=== PATIENT | male | born 1980 | race African-American/Black ===

== ENCOUNTER 2019-12-10 21:37 | Inpatient (IN) ==
[2019-12-11] MEDS ORDERED: PANTOPRAZOLE 40 MG VIAL IV STA (01:03)
[2019-12-11 01:13] LABS: Basophils % 0.2 % (0.0-0.8); Hematocrit 46.7 VOL% (42.0-52.0); Hemoglobin 15.2 GM/DL (14.0-18.0); Immature Granulocytes % 0.3 %; Immature Granulocytes Absolute 0.04 #; Lymphocytes # 4.7 10*3/uL (1.4-4.0); Lymphocytes % 39.9 % (21.2-54.2); Mean Corpuscular HGB Conc 32.5 GM/DL (32-36); Mean Corpuscular Volume 90.3 FL (87-102); Mean Platelet Volume 9.8 FL (9.6-12.0); Monocytes % 7.3 % (1.7-12.7); Neutrophils % 52.3 % (38.7-73.9); Platelet Count 158 T/CUMM (130-400); Red Blood Count 5.17 MC/CUMM (3.8-5.5); Red Cell Distribution Width 15.4 % (9.3-17.3); White Blood Count 11.7 T/CUMM (4-12)
[2019-12-11 01:33] LABS: Alanine Aminotransferase 32 U/L (16-61); Albumin 3.8 G/DL (3.4-5.0); Alkaline Phosphatase 55 U/L (45-117); Aspartate Amino Transferase 24 U/L (0-37); Bilirubin,Total < 0.39 MG/DL (0.2-1.0); Blood Urea Nitrogen 11 MG/DL (7-18); Calcium 9.5 MG/DL (8.5-10.1); Estimated Glom Filtration Rate 100 ML/MIN; Glucose 72 MG/DL (74-106); Total Protein 8.8 G/DL (6.4-8.3)
[2019-12-11] MEDS ORDERED: HYDROmorphone 2 MG/1 ML VIAL IV STA (01:57)
[2019-12-11] MEDS ORDERED: ONDANSETRON 4 MG/2 ML VIAL IV PRN (03:18)
[2019-12-11] MEDS ORDERED: INFLUENZA VIRUS VACCINE 0.5 ML SYRINGE IM ONE (07:26)
[2019-12-11 12:18] VITALS: BP 121/72
== END 2019-12-11 15:52 | DRG 914 ==
LOC: EDBD → EDUNIT# → N.ED 21:37 → N.EDINP 12-11 00:53 → N.3W 12-11 02:59
PROVIDERS: ADMIT Surgery; ATTEND Surgery

== ENCOUNTER 2020-02-05 06:01 | Observation (INO) ==
[2020-02-05 06:57] LABS: Basophils % 0.3 % (0.0-0.8); Hematocrit 42.3 VOL% (42.0-52.0); Hemoglobin 13.6 GM/DL (14.0-18.0); Immature Granulocytes % 0.3 %; Immature Granulocytes Absolute 0.02 #; Mean Corpuscular HGB Conc 32.2 GM/DL (32-36); Mean Corpuscular Volume 91.2 FL (87-102); Mean Platelet Volume 10.4 FL (9.6-12.0); Monocytes % 16.6 % (1.7-12.7); Neutrophils % 53.8 % (38.7-73.9); Platelet Count 129 T/CUMM (130-400); Red Blood Count 4.64 MC/CUMM (3.8-5.5); Red Cell Distribution Width 15.1 % (9.3-17.3)
[2020-02-05 07:06] LABS: Partial Thromboplastin Time 24.4 SECS (23.9-33.8)
[2020-02-05 07:18] LABS: Lymphocytes 35 % (20-55); Segmented Neutrophils 48 % (50-85); Total Cells Counted 100
[2020-02-05 07:19] LABS: Hypochromasia 1+; Ovalocytes Slight
[2020-02-05 07:20] LABS: Albumin 3.2 G/DL (3.4-5.0); Bilirubin,Total 0.6 MG/DL (0.2-1.0)
[2020-02-05] MEDS ORDERED: DIPH/TET/ACEL PERT BOOSTER VACCINE 0.5 ML VIAL IM ONE (07:50)
[2020-02-05] MEDS ORDERED: SODIUM CHLORIDE 0.9% 100 ML IV ONE (08:01)
[2020-02-05] MEDS ORDERED: fentaNYL 100 MCG/2 ML VIAL ONE (08:01)
[2020-02-05] MEDS ORDERED: propofoL 200 MG/20 ML VIAL IV ONE (08:01)
[2020-02-05] MEDS ORDERED: MIDAZOLAM 2 MG/2 ML VIAL ONE (08:01)
[2020-02-05] MEDS ORDERED: ETOMIDATE 40 MG/20 ML VIAL IV ONE (08:01)
[2020-02-05] MEDS ORDERED: BISACODYL 5 MG TABLET PO PRN (09:05)
[2020-02-05] MEDS ORDERED: ALBUTEROL/IPRATROPIUM 3 ML NEB RESP TX PRN (09:05)
[2020-02-05] MEDS ORDERED: ACETAMINOPHEN 325 MG TABLET PO PRN (09:05)
[2020-02-05] MEDS ORDERED: ONDANSETRON 4 MG/2 ML VIAL IV PRN ×2 (09:05→11:15)
[2020-02-05] MEDS ORDERED: FAMOTIDINE 20 MG/2 ML VIAL IV STA (09:15)
[2020-02-05] MEDS: LACTATED RINGERS 1,000 ML IV SCH ×2 (09:33→18:20)
[2020-02-05] MEDS: cefOXitin 1,000 MG in SYRINGE 1 EACH IV SCH ×3 (09:33→22:54)
[2020-02-05] MEDS ORDERED: ONDANSETRON 4 MG/2 ML VIAL ONE (10:04)
[2020-02-05] MEDS ORDERED: SEVOFLURANE 1 UNIT/15 MINUTE INH ONE (11:04)
[2020-02-05] MEDS: HYDROmorphone 2 MG/1 ML VIAL IV PRN ×2 (11:24→11:32)
[2020-02-05] MEDS ORDERED: IBUPROFEN 600 MG TABLET PO PRN (12:54)
[2020-02-05] MEDS ORDERED: NITROGLYCERIN SL 0.4 MG TABLET SL PRN (12:54)
[2020-02-05] MEDS: KETOROLAC 30 MG/1 ML VIAL IV PRN ×2 (13:48→22:59)
[2020-02-05] MEDS: CALCIUM CARBONATE CHEW 500 MG TABLET PO SCH ×2 (15:44→21:24)
[2020-02-05] MEDS: POLYCARBOPHIL 625 MG TABLET PO SCH ×2 (21:24)
[2020-02-05] MEDS: BACLOFEN 10 MG TABLET PO SCH (21:24)
[2020-02-05] MEDS: DIVALPROEX 500 MG TABLET PO SCH (21:24)
[2020-02-06] MEDS: LACTATED RINGERS 1,000 ML IV SCH (01:47)
[2020-02-06] MEDS: cefOXitin 1,000 MG in SYRINGE 1 EACH IV SCH ×2 (05:19→20:00)
[2020-02-06] MEDS: KETOROLAC 30 MG/1 ML VIAL IV PRN (05:19)
[2020-02-06] MEDS ORDERED: FERROUS SULFATE 325 MG TABLET PO SCH (08:00)
[2020-02-06] MEDS: DIVALPROEX 500 MG TABLET PO SCH (08:57)
[2020-02-06] MEDS: POLYCARBOPHIL 625 MG TABLET PO SCH (08:58)
[2020-02-06] MEDS: BACLOFEN 10 MG TABLET PO SCH (08:58)
[2020-02-06] MEDS: CALCIUM CARBONATE CHEW 500 MG TABLET PO SCH ×2 (08:58→15:15)
[2020-02-06] MEDS ORDERED: FOLIC ACID 1 MG TABLET PO SCH (09:00)
[2020-02-06] MEDS ORDERED: PANTOPRAZOLE 40 MG TABLET PO SCH (09:00)
[2020-02-06] MEDS ORDERED: hydroCHLOROthiazide 25 MG TABLET PO SCH (09:00)
[2020-02-06 13:27] VITALS: BP 135/116
== END 2020-02-06 15:15 | disposition home or self-care (01) ==
LOC: EDUNIT# → N.EDINP 06:01 → N.ED 06:01 → N.EDINP 10:10 → N.3W 11:55
PROVIDERS: ADMIT Surgery; ATTEND Surgery

== ENCOUNTER 2020-02-08 02:00 | Inpatient (IN) ==
[2020-02-08] MEDS ORDERED: ONDANSETRON 4 MG/2 ML VIAL IV ONE (03:35)
[2020-02-08] MEDS ORDERED: MORPHINE 4 MG/1 ML VIAL IV STA (03:35)
[2020-02-08 03:51] LABS: Basophils % 0.2 % (0.0-0.8); Hematocrit 42.8 VOL% (42.0-52.0); Immature Granulocytes % 0.4 %; Immature Granulocytes Absolute 0.04 #; Lymphocytes # 3.2 10*3/uL (1.4-4.0); Lymphocytes % 30.6 % (21.2-54.2); Mean Corpuscular HGB Conc 32.7 GM/DL (32-36); Mean Corpuscular Volume 89.9 FL (87-102); Mean Platelet Volume 10.1 FL (9.6-12.0); Monocytes % 13.1 % (1.7-12.7); Neutrophils % 55.7 % (38.7-73.9); Platelet Count 149 T/CUMM (130-400); Red Blood Count 4.76 MC/CUMM (3.8-5.5); Red Cell Distribution Width 14.7 % (9.3-17.3); White Blood Count 10.3 T/CUMM (4-12)
[2020-02-08 04:14] LABS: Alanine Aminotransferase 24 U/L (16-61); Albumin 3.3 G/DL (3.4-5.0); Alkaline Phosphatase 57 U/L (45-117); Aspartate Amino Transferase 21 U/L (0-37); Bilirubin,Total < 0.39 MG/DL (0.2-1.0); Blood Urea Nitrogen 10 MG/DL (7-18); Calcium 9.2 MG/DL (8.5-10.1); Glucose 90 MG/DL (74-106); Osmolality,Calculated 275.5 MOS/KG (273-304); Total Protein 8.2 G/DL (6.4-8.3)
[2020-02-08] MEDS: DEXTROSE 5% NACL 0.45% 1,000 ML IV SCH ×3 (04:19→21:00)
[2020-02-08 04:32] LABS: Estimated Glom Filtration Rate 0 ML/MIN
[2020-02-08 04:51] LABS: INR 0.9; PT Patient Result 10.2 SECS (9.8-11.9); Partial Thromboplastin Time 20.7 SECS (23.9-33.8)
[2020-02-08] MEDS ORDERED: CLINDAMYCIN INJ 900 MG in PREMIX 1 EACH IV ONE (07:07)
[2020-02-08] MEDS ORDERED: MIDAZOLAM 2 MG/2 ML VIAL ONE (07:32)
[2020-02-08] MEDS ORDERED: LIDOCAINE 2% 5 ML VIAL ONE (07:32)
[2020-02-08] MEDS ORDERED: fentaNYL 100 MCG/2 ML VIAL ONE (07:32)
[2020-02-08] MEDS ORDERED: propofoL 200 MG/20 ML VIAL IV ONE (07:32)
[2020-02-08] MEDS ORDERED: ONDANSETRON 4 MG/2 ML VIAL ONE (07:32)
[2020-02-08] MEDS ORDERED: SUCCINYLCHOLINE 200 MG/10 ML VIAL ONE (07:32)
[2020-02-08] MEDS: PANTOPRAZOLE 40 MG VIAL IV SCH (09:32)
[2020-02-08] MEDS ORDERED: LACTATED RINGERS 1,000 ML IV ONE (11:12)
[2020-02-08] MEDS ORDERED: ROCURONIUM 50 MG/5 ML VIAL IV ONE (11:39)
[2020-02-08] MEDS ORDERED: SEVOFLURANE 1 UNIT/15 MINUTE INH ONE (12:00)
[2020-02-08] MEDS ORDERED: NEOSTIGMINE 10 MG/10 ML VIAL ONE (12:11)
[2020-02-08] MEDS ORDERED: GLYCOPYRROLATE 0.4 MG/2 ML VIAL ONE (12:11)
[2020-02-08] MEDS ORDERED: ONDANSETRON 4 MG/2 ML VIAL IV PRN (12:25)
[2020-02-08] MEDS: HYDROmorphone 2 MG/1 ML VIAL IV PRN ×3 (12:28→12:47)
[2020-02-08] MEDS: ACETAMINOPHEN 325 MG TABLET PO PRN ×2 (15:18→20:55)
[2020-02-08] MEDS: ONDANSETRON 4 MG/2 ML VIAL IV PRN (17:07)
[2020-02-09] MEDS: DEXTROSE 5% NACL 0.45% 1,000 ML IV SCH (04:56)
[2020-02-09] MEDS: ONDANSETRON 4 MG/2 ML VIAL IV PRN (05:39)
[2020-02-09 05:47] LABS: Basophils % 0.2 % (0.0-0.8); Hematocrit 41.3 VOL% (42.0-52.0); Hemoglobin 13.2 GM/DL (14.0-18.0); Immature Granulocytes % 0.2 %; Immature Granulocytes Absolute 0.02 #; Lymphocytes # 3.2 10*3/uL (1.4-4.0); Mean Platelet Volume 9.9 FL (9.6-12.0); Monocytes % 16.7 % (1.7-12.7); Neutrophils % 50.9 % (38.7-73.9); Platelet Count 156 T/CUMM (130-400); Red Blood Count 4.54 MC/CUMM (3.8-5.5); Red Cell Distribution Width 14.6 % (9.3-17.3)
[2020-02-09 06:10] LABS: Calcium 8.6 MG/DL (8.5-10.1); Osmolality,Calculated 272.7 MOS/KG (273-304)
[2020-02-09 07:05] LABS: Atypical Lymphocytes Few; Band Neutrophils 1 % (0-10); Lymphocytes 18 % (20-55); Ovalocytes Few; Polychromasia Slight; Segmented Neutrophils 54 % (50-85); Total Cells Counted 100
[2020-02-09 07:06] LABS: Platelet Estimate Adequate
[2020-02-09] MEDS: PANTOPRAZOLE 40 MG VIAL IV SCH (09:19)
[2020-02-09] MEDS: SULFAMETHOX/TRIMETHOPRIM 800-160 MG TABLET PO SCH ×2 (09:19→20:45)
[2020-02-10 08:02] LABS: Basophils % 0.2 % (0.0-0.8); Hematocrit 38.8 VOL% (42.0-52.0); Hemoglobin 12.7 GM/DL (14.0-18.0); Immature Granulocytes % 0.1 %; Immature Granulocytes Absolute 0.01 #; Lymphocytes # 4.6 10*3/uL (1.4-4.0); Lymphocytes % 51.4 % (21.2-54.2); Mean Corpuscular HGB Conc 32.7 GM/DL (32-36); Mean Corpuscular Volume 90.4 FL (87-102); Mean Platelet Volume 9.3 FL (9.6-12.0); Monocytes % 15.9 % (1.7-12.7); Neutrophils % 32.4 % (38.7-73.9); Platelet Count 155 T/CUMM (130-400); Red Blood Count 4.29 MC/CUMM (3.8-5.5); Red Cell Distribution Width 14.4 % (9.3-17.3); White Blood Count 8.9 T/CUMM (4-12)
[2020-02-10 08:18] LABS: Calcium 8.7 MG/DL (8.5-10.1); Osmolality,Calculated 270.8 MOS/KG (273-304)
[2020-02-10 08:20] LABS: Atypical Lymphocytes Few; Hypochromasia 1+; Lymphocytes 54 % (20-55); Microcytosis 1+; Platelet Estimate Adequate; Segmented Neutrophils 29 % (50-85); Total Cells Counted 100
[2020-02-10] MEDS: ONDANSETRON 4 MG/2 ML VIAL IV PRN (09:20)
[2020-02-10] MEDS: SULFAMETHOX/TRIMETHOPRIM 800-160 MG TABLET PO SCH ×2 (09:20→20:44)
[2020-02-10] MEDS: PANTOPRAZOLE 40 MG VIAL IV SCH (09:20)
[2020-02-10] MEDS: ONDANSETRON 4 MG/2 ML VIAL IV SCH ×3 (13:41→23:03)
[2020-02-10] MEDS: ACETAMINOPHEN 325 MG TABLET PO PRN (17:36)
[2020-02-10] MEDS ORDERED: traMADol 50 MG TABLET PO PRN (19:31)
[2020-02-10] MEDS: DIVALPROEX 500 MG TABLET PO SCH (20:44)
[2020-02-11] MEDS: ONDANSETRON 4 MG/2 ML VIAL IV SCH ×2 (06:17→13:46)
[2020-02-11 06:31] LABS: Basophils % 0.3 % (0.0-0.8); Hematocrit 38.7 VOL% (42.0-52.0); Hemoglobin 12.7 GM/DL (14.0-18.0); Immature Granulocytes % 0.3 %; Immature Granulocytes Absolute 0.02 #; Lymphocytes # 3.7 10*3/uL (1.4-4.0); Lymphocytes % 48.1 % (21.2-54.2); Mean Corpuscular HGB Conc 32.8 GM/DL (32-36); Mean Platelet Volume 9.5 FL (9.6-12.0); Monocytes % 12.5 % (1.7-12.7); Neutrophils % 38.8 % (38.7-73.9); Platelet Count 159 T/CUMM (130-400); Red Blood Count 4.35 MC/CUMM (3.8-5.5); Red Cell Distribution Width 14.3 % (9.3-17.3); White Blood Count 7.7 T/CUMM (4-12)
[2020-02-11 06:46] LABS: Calcium 8.6 MG/DL (8.5-10.1)
[2020-02-11] MEDS ORDERED: LEVOTHYROXINE 100 MCG TABLET PO SCH (07:00)
[2020-02-11] MEDS ORDERED: hydroCHLOROthiazide 25 MG TABLET PO SCH (09:00)
[2020-02-11] MEDS ORDERED: FOLIC ACID 1 MG TABLET PO SCH (09:00)
[2020-02-11] MEDS ORDERED: FERROUS SULFATE 325 MG TABLET PO SCH (09:00)
[2020-02-11] MEDS: SULFAMETHOX/TRIMETHOPRIM 800-160 MG TABLET PO SCH (09:59)
[2020-02-11] MEDS: DIVALPROEX 500 MG TABLET PO SCH (09:59)
[2020-02-11] MEDS: PANTOPRAZOLE 40 MG VIAL IV SCH (10:00)
[2020-02-11 14:58] VITALS: BP 132/84
== END 2020-02-11 15:30 | DRG 914 ==
LOC: EDBD → EDUNIT# → N.EDINP 02:00 → N.ED 02:00 → N.3W 05:32
PROVIDERS: ADMIT Student in an Organized Health Care Education/Training Program; ATTEND Student in an Organized Health Care Education/Training Program

== ENCOUNTER 2020-11-20 12:40 | Observation (INO) ==
[2020-11-20] MEDS ORDERED: DIPH/TET/ACEL PERT BOOSTER VACCINE 0.5 ML VIAL IM ONE (12:59)
[2020-11-20] MEDS ORDERED: SODIUM CHLORIDE 0.9% 1,000 ML IV STA (12:59)
[2020-11-20] MEDS ORDERED: CLINDAMYCIN INJ 600 MG/50 ML PREMIX IV STA (13:02)
[2020-11-20 14:02] LABS: Basophils % 0.2 % (0.0-0.8); Hematocrit 41.2 VOL% (42.0-52.0); Hemoglobin 13.2 GM/DL (14.0-18.0); Immature Granulocytes % 0.4 %; Immature Granulocytes Absolute 0.04 #; Lymphocytes % 43.5 % (21.2-54.2); Mean Corpuscular Volume 90.5 FL (87-102); Mean Platelet Volume 9.8 FL (9.6-12.0); Monocytes % 13.3 % (1.7-12.7); Neutrophils % 42.6 % (38.7-73.9); Platelet Count 138 T/CUMM (130-400); Red Blood Count 4.55 MC/CUMM (3.8-5.5); Red Cell Distribution Width 14.4 % (9.3-17.3); White Blood Count 9.2 T/CUMM (4-12)
[2020-11-20 14:12] LABS: INR 0.9; PT Patient Result 10.6 SECS (10.5-12.0)
[2020-11-20 14:25] LABS: Alanine Aminotransferase 59 U/L (16-61); Albumin 3.6 G/DL (3.4-5.0); Alkaline Phosphatase 42 U/L (45-117); Aspartate Amino Transferase 42 U/L (0-37); Bilirubin,Total < 0.39 MG/DL (0.20-1.00); Blood Urea Nitrogen 9 MG/DL (7-18); Calcium 9.5 MG/DL (8.5-10.1); Carbon Dioxide 29 MMOL/L (21-32); Estimated Glom Filtration Rate 136 ML/MIN; Glucose 67 MG/DL (74-106); Osmolality,Calculated 277.3 MOS/KG (273-304); Potassium 3.8 MMOL/L (3.5-5.1); Sodium 141 MMOL/L (136-145); Total Protein 7.9 G/DL (6.4-8.2)
[2020-11-20] MEDS ORDERED: ONDANSETRON 4 MG/2 ML VIAL ONE (15:28)
[2020-11-20] MEDS ORDERED: ONDANSETRON 4 MG/2 ML VIAL IV STA (15:36)
[2020-11-20] MEDS ORDERED: ACETAMINOPHEN 325 MG TABLET PO PRN (16:34)
[2020-11-20] MEDS: LEVOFLOXACIN INJ 750 MG/150 ML PREMIX IV SCH (17:28)
[2020-11-20] MEDS: DEXTROSE 5% LACTATED RINGERS 1,000 ML IV SCH (19:51)
[2020-11-20] MEDS: DIVALPROEX 500 MG TABLET PO SCH (20:48)
[2020-11-20] MEDS: MORPHINE 2 MG/1 ML SYRINGE IV PRN (21:25)
[2020-11-20] MEDS: ONDANSETRON 4 MG/2 ML VIAL IV PRN (22:15)
[2020-11-21] MEDS: MORPHINE 2 MG/1 ML SYRINGE IV PRN ×3 (01:08→21:34)
[2020-11-21] MEDS: DEXTROSE 5% LACTATED RINGERS 1,000 ML IV SCH ×3 (03:02→21:32)
[2020-11-21 05:53] LABS: Basophils % 0.1 % (0.0-0.8); Hematocrit 40.6 VOL% (42.0-52.0); Hemoglobin 12.9 GM/DL (14.0-18.0); Immature Granulocytes % 0.3 %; Immature Granulocytes Absolute 0.02 #; Lymphocytes # 3.1 10*3/uL (1.4-4.0); Lymphocytes % 39.1 % (21.2-54.2); Mean Corpuscular HGB Conc 31.8 GM/DL (32-36); Mean Corpuscular Volume 92.1 FL (87-102); Monocytes % 11.6 % (1.7-12.7); Neutrophils % 48.9 % (38.7-73.9); Red Blood Count 4.41 MC/CUMM (3.8-5.5); Red Cell Distribution Width 14.6 % (9.3-17.3)
[2020-11-21 05:54] LABS: Platelet Count 120 T/CUMM (130-400)
[2020-11-21 06:16] LABS: Calcium 8.6 MG/DL (8.5-10.1); Osmolality,Calculated 274.5 MOS/KG (273-304); Potassium 3.9 MMOL/L (3.5-5.1)
[2020-11-21] MEDS: ONDANSETRON 4 MG/2 ML VIAL IV PRN (06:56)
[2020-11-21] MEDS: PANTOPRAZOLE 40 MG TABLET PO SCH (09:08)
[2020-11-21] MEDS: hydroCHLOROthiazide 25 MG TABLET PO SCH (09:08)
[2020-11-21] MEDS: DIVALPROEX 500 MG TABLET PO SCH ×2 (09:08→21:33)
[2020-11-21] MEDS: LEVOFLOXACIN INJ 750 MG/150 ML PREMIX IV SCH (16:10)
[2020-11-22] MEDS: ONDANSETRON 4 MG/2 ML VIAL IV PRN ×2 (03:12→14:52)
[2020-11-22] MEDS: MORPHINE 2 MG/1 ML SYRINGE IV PRN ×4 (03:14→19:15)
[2020-11-22] MEDS: DEXTROSE 5% LACTATED RINGERS 1,000 ML IV SCH ×4 (05:11→17:45)
[2020-11-22] MEDS: FERROUS SULFATE 325 MG TABLET PO SCH (10:27)
[2020-11-22] MEDS: hydroCHLOROthiazide 25 MG TABLET PO SCH (10:27)
[2020-11-22] MEDS: FOLIC ACID 1 MG TABLET PO SCH (10:27)
[2020-11-22] MEDS: DIVALPROEX 500 MG TABLET PO SCH ×2 (10:27→21:00)
[2020-11-22] MEDS: PANTOPRAZOLE 40 MG TABLET PO SCH (10:28)
[2020-11-22] MEDS: LEVOFLOXACIN INJ 750 MG/150 ML PREMIX IV SCH (17:45)
[2020-11-23] MEDS: ONDANSETRON 4 MG/2 ML VIAL IV PRN ×2 (04:21→08:48)
[2020-11-23] MEDS: MORPHINE 2 MG/1 ML SYRINGE IV PRN ×2 (04:22→08:44)
[2020-11-23] MEDS: DEXTROSE 5% LACTATED RINGERS 1,000 ML IV SCH ×2 (04:37→10:28)
[2020-11-23] MEDS ORDERED: LEVOTHYROXINE 200 MCG TABLET PO SCH (06:30)
[2020-11-23] MEDS: PANTOPRAZOLE 40 MG TABLET PO SCH (08:49)
[2020-11-23] MEDS: FOLIC ACID 1 MG TABLET PO SCH (08:49)
[2020-11-23] MEDS: DIVALPROEX 500 MG TABLET PO SCH (08:49)
[2020-11-23] MEDS: FERROUS SULFATE 325 MG TABLET PO SCH (08:49)
[2020-11-23] MEDS: hydroCHLOROthiazide 25 MG TABLET PO SCH (08:49)
[2020-11-23 12:48] VITALS: BP 152/59
== END 2020-11-23 14:25 ==
LOC: N.EDINP 12:40 → N.ED 12:40 → N.3W 17:46
PROVIDERS: ADMIT Surgery; ATTEND Surgery

== ENCOUNTER 2021-02-27 15:44 | Observation (INO) ==
[2021-02-27] MEDS ORDERED: LACTATED RINGERS 1,000 ML IV ONE (16:35)
[2021-02-27] MEDS ORDERED: LEVOFLOXACIN INJ 750 MG/150 ML PREMIX IV STA (16:36)
[2021-02-27] MEDS ORDERED: metroNIDAZOLE INJ 500 MG/100 ML PREMIX IV STA (16:36)
[2021-02-27] MEDS ORDERED: ONDANSETRON 4 MG/2 ML VIAL IV ONE ×2 (16:46→19:08)
[2021-02-27 16:51] LABS: Basophils # 0.1 10*3/uL (0.0-0.2); Basophils % 0.3 % (0.0-0.8); Hematocrit 39.8 VOL% (42.0-52.0); Hemoglobin 12.7 GM/DL (14.0-18.0); Immature Granulocytes % 0.5 %; Immature Granulocytes Absolute 0.08 #; Lymphocytes # 5.6 10*3/uL (1.4-4.0); Lymphocytes % 34.7 % (21.2-54.2); Mean Corpuscular HGB Conc 31.9 GM/DL (32-36); Mean Corpuscular Volume 89.2 FL (87-102); Mean Platelet Volume 9.7 FL (9.6-12.0); Monocytes % 12.7 % (1.7-12.7); Neutrophils % 51.8 % (38.7-73.9); Platelet Count 244 T/CUMM (130-400); Red Blood Count 4.46 MC/CUMM (3.8-5.5); Red Cell Distribution Width 14.8 % (9.3-17.3); White Blood Count 16.1 T/CUMM (4-12)
[2021-02-27 17:04] LABS: Alanine Aminotransferase 92 U/L (16-61); Alkaline Phosphatase 72 U/L (45-117); Aspartate Amino Transferase 63 U/L (0-37); Bilirubin,Total < 0.39 MG/DL (0.20-1.00); Blood Urea Nitrogen 14 MG/DL (7-18); Calcium 9.5 MG/DL (8.5-10.1); Carbon Dioxide 30 MMOL/L (21-32); Estimated Glom Filtration Rate 94 ML/MIN; Glucose 106 MG/DL (74-106); Osmolality,Calculated 270.1 MOS/KG (273-304); Potassium 4.2 MMOL/L (3.5-5.1); Sodium 135 MMOL/L (136-145); Total Protein 8.6 G/DL (6.4-8.2)
[2021-02-27] MEDS ORDERED: MORPHINE 2 MG/1 ML SYRINGE IV STA (19:08)
[2021-02-27] MEDS ORDERED: ONDANSETRON 4 MG/2 ML VIAL IV PRN (19:53)
[2021-02-27] MEDS: DEXTROSE 5% NACL 0.45% 1,000 ML IV SCH (20:29)
[2021-02-27] MEDS: VANCOMYCIN INJ 1,500 MG in SODIUM CHLORIDE 0.9% 500 ML IV SCH (22:53)
[2021-02-28] MEDS: ACETAMINOPHEN 325 MG TABLET PO PRN ×2 (01:16→21:40)
[2021-02-28] MEDS: DEXTROSE 5% NACL 0.45% 1,000 ML IV SCH ×3 (03:47→22:28)
[2021-02-28 05:01] LABS: Basophils % 0.2 % (0.0-0.8); Hematocrit 37.2 VOL% (42.0-52.0); Immature Granulocytes % 0.5 %; Immature Granulocytes Absolute 0.06 #; Mean Corpuscular HGB Conc 32.3 GM/DL (32-36); Mean Platelet Volume 9.6 FL (9.6-12.0); Monocytes % 13.9 % (1.7-12.7); Neutrophils % 60.4 % (38.7-73.9); Platelet Count 231 T/CUMM (130-400); Red Blood Count 4.18 MC/CUMM (3.8-5.5); White Blood Count 11.8 T/CUMM (4-12)
[2021-02-28 05:42] LABS: Albumin 2.6 G/DL (3.4-5.0); Bilirubin,Total 0.5 MG/DL (0.20-1.00); Calcium 8.7 MG/DL (8.5-10.1); Osmolality,Calculated 274.7 MOS/KG (273-304); Potassium 3.4 MMOL/L (3.5-5.1); Total Protein 7.6 G/DL (6.4-8.2)
[2021-02-28] MEDS ORDERED: propofoL 200 MG/20 ML VIAL IV ONE (09:19)
[2021-02-28] MEDS ORDERED: fentaNYL 100 MCG/2 ML VIAL ONE (09:19)
[2021-02-28] MEDS ORDERED: SEVOFLURANE 1 UNIT/15 MINUTE INH ONE ×2 (09:19→10:42)
[2021-02-28] MEDS ORDERED: LIDOCAINE 2% 5 ML VIAL ONE (09:19)
[2021-02-28] MEDS ORDERED: MIDAZOLAM 2 MG/2 ML VIAL ONE (09:20)
[2021-02-28] MEDS ORDERED: KETOROLAC 30 MG/1 ML VIAL ONE (10:42)
[2021-02-28] MEDS ORDERED: ONDANSETRON 4 MG/2 ML VIAL ONE (10:42)
[2021-02-28] MEDS ORDERED: ACETAMINOPHEN INJ 1,000 MG/100 ML VIAL IV ONE (10:42)
[2021-02-28] MEDS: PANTOPRAZOLE 40 MG VIAL IV SCH (10:44)
[2021-02-28] MEDS: CIPROFLOXACIN INJ 400 MG/200 ML PREMIX IV SCH ×2 (11:32→21:39)
[2021-02-28] MEDS: metroNIDAZOLE INJ 500 MG/100 ML PREMIX IV SCH ×2 (13:00→18:06)
[2021-02-28] MEDS: VANCOMYCIN INJ 1,500 MG in SODIUM CHLORIDE 0.9% 500 ML IV SCH ×2 (14:04→22:28)
[2021-02-28] MEDS ORDERED: LEVOFLOXACIN INJ 500 MG/100 ML PREMIX IV SCH (18:00)
[2021-03-01] MEDS ORDERED: SULFAMETHOX/TRIMETHOPRIM 800-160 MG TABLET PO SCH (09:00)
[2021-03-01] MEDS: PANTOPRAZOLE 40 MG VIAL IV SCH (09:10)
[2021-03-01 10:02] VITALS: BP 133/79
[2021-03-01] MEDS ORDERED: DIVALPROEX 500 MG TABLET PO SCH (21:00)
[2021-03-02] MEDS ORDERED: LEVOTHYROXINE 200 MCG TABLET PO SCH (06:30)
[2021-03-02] MEDS ORDERED: FERROUS SULFATE 325 MG TABLET PO SCH (08:00)
[2021-03-02] MEDS ORDERED: hydroCHLOROthiazide 25 MG TABLET PO SCH (09:00)
[2021-03-02] MEDS ORDERED: FOLIC ACID 1 MG TABLET PO SCH (09:00)
== END 2021-03-01 12:00 ==
LOC: EDBD → EDUNIT# → N.EDINP 15:44 → N.ED 15:44 → N.3W 21:01
PROVIDERS: ADMIT Student in an Organized Health Care Education/Training Program; ATTEND Student in an Organized Health Care Education/Training Program

== ENCOUNTER 2021-04-05 22:34 | Inpatient (IN) ==
[2021-04-05] MEDS ORDERED: SODIUM CHLORIDE 0.9% 1,000 ML IV STA (23:00)
[2021-04-05] MEDS ORDERED: hydrALAZINE 20 MG/1 ML VIAL IV STA (23:00)
[2021-04-05] MEDS ORDERED: ONDANSETRON 4 MG/2 ML VIAL IV STA (23:00)
[2021-04-06 00:11] LABS: Alanine Aminotransferase 30 U/L (16-61); Albumin 3.5 G/DL (3.4-5.0); Alkaline Phosphatase 67 U/L (45-117); Aspartate Amino Transferase 29 U/L (0-37); Bilirubin,Total < 0.39 MG/DL (0.20-1.00); Blood Urea Nitrogen 29 MG/DL (7-18); Calcium 9.9 MG/DL (8.5-10.1); Carbon Dioxide 23 MMOL/L (21-32); Estimated Glom Filtration Rate 86 ML/MIN; Glucose 109 MG/DL (74-106); Osmolality,Calculated 268.7 MOS/KG (273-304); Potassium 3.9 MMOL/L (3.5-5.1); Sodium 131 MMOL/L (136-145); Total Protein 8.8 G/DL (6.4-8.2)
[2021-04-06 00:52] LABS: Basophils % 0.2 % (0.0-0.8); Hematocrit 40.1 VOL% (42.0-52.0); Hemoglobin 12.7 GM/DL (14.0-18.0); Immature Granulocytes % 0.2 %; Immature Granulocytes Absolute 0.02 #; Lymphocytes # 3.3 10*3/uL (1.4-4.0); Lymphocytes % 34.6 % (21.2-54.2); Mean Corpuscular HGB Conc 31.7 GM/DL (32-36); Mean Corpuscular Volume 90.5 FL (87-102); Mean Platelet Volume 9.7 FL (9.6-12.0); Monocytes % 18.8 % (1.7-12.7); Neutrophils % 46.2 % (38.7-73.9); Platelet Count 261 T/CUMM (130-400); Red Blood Count 4.43 MC/CUMM (3.8-5.5); Red Cell Distribution Width 15.5 % (9.3-17.3); White Blood Count 9.5 T/CUMM (4-12)
[2021-04-06 01:59] LABS: Lymphocytes 35 % (20-55); Platelet Estimate Adequate; Segmented Neutrophils 45 % (50-85); Total Cells Counted 100
[2021-04-06] MEDS ORDERED: DEXTROSE 10% 250 ML BAG IV PRN (02:03)
[2021-04-06] MEDS ORDERED: ACETAMINOPHEN 325 MG TABLET PO PRN (02:03)
[2021-04-06] MEDS ORDERED: PROMETHAZINE 25 MG/1 ML VIAL IV PRN (02:03)
[2021-04-06] MEDS ORDERED: hydrALAZINE 20 MG/1 ML VIAL IV PRN (02:03)
[2021-04-06] MEDS ORDERED: GLUCAGON 1 MG VIAL IM PRN (02:03)
[2021-04-06] MEDS: SODIUM CHLORIDE 0.9% 1,000 ML IV SCH (02:40)
[2021-04-06] MEDS: CLINDAMYCIN INJ 600 MG/50 ML PREMIX IV SCH ×4 (02:40→21:40)
[2021-04-06] MEDS: HYDROmorphone 2 MG/1 ML VIAL IV PRN ×2 (02:40→10:06)
[2021-04-06 04:33] LABS: Basophils % 0.3 % (0.0-0.8); Hemoglobin 12.2 GM/DL (14.0-18.0); Immature Granulocytes % 0.1 %; Immature Granulocytes Absolute 0.01 #; Lymphocytes # 3.8 10*3/uL (1.4-4.0); Lymphocytes % 48.1 % (21.2-54.2); Mean Corpuscular HGB Conc 32.1 GM/DL (32-36); Mean Corpuscular Volume 89.4 FL (87-102); Mean Platelet Volume 9.3 FL (9.6-12.0); Monocytes % 21.7 % (1.7-12.7); Neutrophils % 29.8 % (38.7-73.9); Platelet Count 246 T/CUMM (130-400); Red Blood Count 4.25 MC/CUMM (3.8-5.5); Red Cell Distribution Width 15.5 % (9.3-17.3)
[2021-04-06 04:53] LABS: Calcium 8.6 MG/DL (8.5-10.1); Osmolality,Calculated 271.4 MOS/KG (273-304); Potassium 3.5 MMOL/L (3.5-5.1)
[2021-04-06 04:55] LABS: Band Neutrophils 7 % (0-10); Hypochromia 1+; Lymphocytes 44 % (20-55); Microcytosis 1+; Polychromasia Slight; Segmented Neutrophils 30 % (50-85); Total Cells Counted 100
[2021-04-06] MEDS ORDERED: MORPHINE 4 MG/1 ML VIAL IV ONE (06:22)
[2021-04-06] MEDS: ONDANSETRON 4 MG/2 ML VIAL IV PRN (10:00)
[2021-04-06 11:46] LABS: Mucus,Urine Many /LPF (Occasional); RBC,Urine 5 /HPF (0-4); Squamous Epithelial Cell,Urine Occasional /HPF (0-10)
[2021-04-06 11:47] LABS: Bilirubin,Urine Negative (Negative); Blood, Urine Trace mg/dL (Negative); Glucose,Urine (UA) Negative (Negative); Ketones,Urine Trace mg/dL (Negative); Nitrite,Urine Negative (Negative); Protein,Urine Trace MG/DL; Urine Appearance Clear (Clear); Urine Color Yellow (Yellow); Urine Urobilinogen 0.2 EU/DL (<2.0)
[2021-04-06] MEDS: ENOXAPARIN 40 MG/0.4 ML SYRINGE SUBCUT SCH (21:40)
[2021-04-07] MEDS: HYDROmorphone 2 MG/1 ML VIAL IV PRN ×3 (00:15→22:55)
[2021-04-07] MEDS: CLINDAMYCIN INJ 600 MG/50 ML PREMIX IV SCH ×4 (03:10→21:19)
[2021-04-07] MEDS: SODIUM CHLORIDE 0.9% 1,000 ML IV SCH ×2 (04:50→15:49)
[2021-04-07] MEDS: ENOXAPARIN 40 MG/0.4 ML SYRINGE SUBCUT SCH (21:19)
[2021-04-08] MEDS: SODIUM CHLORIDE 0.9% 1,000 ML IV SCH ×3 (01:10→23:06)
[2021-04-08] MEDS: CLINDAMYCIN INJ 600 MG/50 ML PREMIX IV SCH ×4 (03:11→21:32)
[2021-04-08 05:40] LABS: Basophils # 0.1 10*3/uL (0.0-0.2); Basophils % 0.7 % (0.0-0.8); Hematocrit 34.8 VOL% (42.0-52.0); Hemoglobin 11.1 GM/DL (14.0-18.0); Immature Granulocytes % 1.5 %; Immature Granulocytes Absolute 0.11 #; Lymphocytes # 3.3 10*3/uL (1.4-4.0); Lymphocytes % 46.3 % (21.2-54.2); Mean Corpuscular HGB Conc 31.9 GM/DL (32-36); Mean Platelet Volume 9.5 FL (9.6-12.0); Monocytes % 18.3 % (1.7-12.7); Neutrophils % 33.2 % (38.7-73.9); Platelet Count 240 T/CUMM (130-400); Red Blood Count 3.91 MC/CUMM (3.8-5.5); Red Cell Distribution Width 15.2 % (9.3-17.3); White Blood Count 7.2 T/CUMM (4-12)
[2021-04-08 06:02] LABS: Calcium 8.1 MG/DL (8.5-10.1); Osmolality,Calculated 267.2 MOS/KG (273-304); Potassium 3.3 MMOL/L (3.5-5.1)
[2021-04-08 06:11] LABS: Band Neutrophils 6 % (0-10); Lymphocytes 44 % (20-55); Platelet Estimate Normal; Segmented Neutrophils 33 % (50-85); Total Cells Counted 100
[2021-04-08 06:12] LABS: Anisocytosis 1+; Burr Cells Few; Target Cells Few
[2021-04-08] MEDS ORDERED: POTASSIUM CHLORIDE 20 MEQ TABLET PO ONE ×2 (08:25→11:04)
[2021-04-08] MEDS: CHOLESTYRAMINE 4 GM PACK PO SCH ×2 (11:53→21:33)
[2021-04-08] MEDS: HYDROmorphone 2 MG/1 ML VIAL IV PRN ×2 (15:01→21:31)
[2021-04-08] MEDS: DIVALPROEX 500 MG TABLET PO SCH (21:33)
[2021-04-08] MEDS: ENOXAPARIN 40 MG/0.4 ML SYRINGE SUBCUT SCH (21:33)
[2021-04-08] MEDS: ONDANSETRON 4 MG/2 ML VIAL IV PRN (21:37)
[2021-04-08] MEDS ORDERED: MORPHINE 4 MG/1 ML VIAL IV ONE (22:47)
[2021-04-09] MEDS: CLINDAMYCIN INJ 600 MG/50 ML PREMIX IV SCH ×5 (02:38→23:40)
[2021-04-09 04:58] LABS: Basophils # 0.1 10*3/uL (0.0-0.2); Basophils % 0.7 % (0.0-0.8); Hematocrit 36.3 VOL% (42.0-52.0); Hemoglobin 11.5 GM/DL (14.0-18.0); Immature Granulocytes % 1.4 %; Immature Granulocytes Absolute 0.12 #; Lymphocytes # 3.6 10*3/uL (1.4-4.0); Lymphocytes % 42.9 % (21.2-54.2); Mean Corpuscular HGB Conc 31.7 GM/DL (32-36); Mean Corpuscular Volume 88.5 FL (87-102); Mean Platelet Volume 8.8 FL (9.6-12.0); Monocytes % 26.2 % (1.7-12.7); NRBC # 0.02 10*3/uL; Neutrophils % 28.8 % (38.7-73.9); Platelet Count 252 T/CUMM (130-400); Red Cell Distribution Width 15.2 % (9.3-17.3); White Blood Count 8.4 T/CUMM (4-12)
[2021-04-09 05:22] LABS: Calcium 8.2 MG/DL (8.5-10.1); Potassium 3.7 MMOL/L (3.5-5.1)
[2021-04-09 05:53] LABS: Anisocytosis 1+; Lymphocytes 43 % (20-55); Platelet Estimate Adequate; Polychromasia 1+; Segmented Neutrophils 33 % (50-85); Total Cells Counted 100
[2021-04-09] MEDS: SODIUM CHLORIDE 0.9% 1,000 ML IV SCH (06:16)
[2021-04-09] MEDS: LEVOTHYROXINE 50 MCG TABLET PO SCH (06:17)
[2021-04-09] MEDS: LEVOTHYROXINE 200 MCG TABLET PO SCH (06:17)
[2021-04-09] MEDS: CHOLESTYRAMINE 4 GM PACK PO SCH ×2 (09:12→21:37)
[2021-04-09] MEDS: DIVALPROEX 500 MG TABLET PO SCH ×2 (09:13→21:37)
[2021-04-09] MEDS: NORTRIPTYLINE 25 MG CAPSULE PO SCH (09:13)
[2021-04-09] MEDS: FOLIC ACID 1 MG TABLET PO SCH (09:13)
[2021-04-09] MEDS: HYDROmorphone 2 MG/1 ML VIAL IV PRN (13:21)
[2021-04-09] MEDS: ENOXAPARIN 40 MG/0.4 ML SYRINGE SUBCUT SCH (21:38)
[2021-04-10] MEDS: SODIUM CHLORIDE 0.9% 1,000 ML IV SCH (03:07)
[2021-04-10] MEDS: LEVOTHYROXINE 50 MCG TABLET PO SCH (05:51)
[2021-04-10] MEDS: CLINDAMYCIN INJ 600 MG/50 ML PREMIX IV SCH (05:51)
[2021-04-10] MEDS: LEVOTHYROXINE 200 MCG TABLET PO SCH (05:52)
[2021-04-10 06:09] LABS: Basophils % 0.5 % (0.0-0.8); Hematocrit 35.4 VOL% (42.0-52.0); Hemoglobin 11.2 GM/DL (14.0-18.0); Immature Granulocytes % 2.2 %; Immature Granulocytes Absolute 0.18 #; Lymphocytes # 4.6 10*3/uL (1.4-4.0); Mean Corpuscular HGB Conc 31.6 GM/DL (32-36); Mean Corpuscular Volume 89.8 FL (87-102); Mean Platelet Volume 9.8 FL (9.6-12.0); NRBC # 0.04 10*3/uL; Neutrophils % 20.3 % (38.7-73.9); Platelet Count 271 T/CUMM (130-400); Red Blood Count 3.94 MC/CUMM (3.8-5.5); Red Cell Distribution Width 15.4 % (9.3-17.3)
[2021-04-10 06:25] LABS: Calcium 8.6 MG/DL (8.5-10.1); Osmolality,Calculated 264.2 MOS/KG (273-304); Potassium 3.6 MMOL/L (3.5-5.1)
[2021-04-10 06:35] LABS: Band Neutrophils 1 % (0-10); Hypochromia 1+; Lymphocytes 60 % (20-55); Microcytosis 1+; Platelet Estimate Adequate; Segmented Neutrophils 22 % (50-85); Total Cells Counted 100
[2021-04-10 06:36] LABS: Atypical Lymphocytes Few
[2021-04-10] MEDS: FOLIC ACID 1 MG TABLET PO SCH (08:23)
[2021-04-10] MEDS: NORTRIPTYLINE 25 MG CAPSULE PO SCH (08:23)
[2021-04-10] MEDS: DIVALPROEX 500 MG TABLET PO SCH (08:23)
[2021-04-10] MEDS: CHOLESTYRAMINE 4 GM PACK PO SCH (09:18)
[2021-04-10 14:45] VITALS: BP 148/82
== END 2021-04-10 13:37 | DRG 389 ==
LOC: EDBD → EDUNIT# → N.ED 22:34 → N.EDINP 04-06 02:03 → N.3W 04-06 16:57
PROVIDERS: ADMIT Internal Medicine Geriatric Medicine; ATTEND Internal Medicine Geriatric Medicine

== ENCOUNTER 2022-01-02 21:52 | Observation (INO) ==
[2022-01-03] MEDS ORDERED: PROMETHAZINE 25 MG/1 ML VIAL IM PRN (01:01)
[2022-01-03] MEDS ORDERED: ACETAMINOPHEN 325 MG TABLET PO PRN (01:01)
[2022-01-03 01:43] LABS: Basophils % 0.3 % (0.0-0.8); Hematocrit 33.7 VOL% (42.0-52.0); Hemoglobin 10.8 GM/DL (14.0-18.0); Immature Granulocytes % 0.1 %; Immature Granulocytes Absolute 0.01 #; Lymphocytes # 3.4 10*3/uL (1.4-4.0); Lymphocytes % 38.3 % (21.2-54.2); Mean Corpuscular Volume 85.3 FL (87-102); Monocytes # 0.9 10*3/uL (0.11-0.8); Monocytes % 9.9 % (1.7-12.7); Neutrophils % 51.4 % (38.7-73.9); Platelet Count 174 T/CUMM (130-400); Red Blood Count 3.95 MC/CUMM (3.8-5.5); Red Cell Distribution Width 14.7 % (9.3-17.3); White Blood Count 8.9 T/CUMM (4-12)
[2022-01-03 02:03] LABS: INR 0.9; PT Patient Result 10.3 SECS (10.1-12.1)
[2022-01-03 02:14] LABS: Alanine Aminotransferase 37 U/L (16-61); Albumin 3.2 G/DL (3.4-5.0); Alkaline Phosphatase 71 U/L (45-117); Aspartate Amino Transferase 49 U/L (0-37); Bilirubin,Total < 0.39 MG/DL (0.20-1.00); Blood Urea Nitrogen 10 MG/DL (7-18); Calcium 8.9 MG/DL (8.5-10.1); Carbon Dioxide 29 MMOL/L (21-32); Chloride 107 MMOL/L (98-107); Glucose 100 MG/DL (74-106); Osmolality,Calculated 275.5 MOS/KG (273-304); Potassium 3.8 MMOL/L (3.5-5.1); Sodium 139 MMOL/L (136-145); Total Protein 6.9 G/DL (6.4-8.2)
[2022-01-03] MEDS ORDERED: LORazepam 2 MG/1 ML VIAL IM PRN (02:34)
[2022-01-03] MEDS ORDERED: LORazepam 2 MG/1 ML VIAL IV PRN (03:25)
[2022-01-03] MEDS ORDERED: INSULIN REGULAR 100 UNIT/ML SUBCUT SCH (07:30)
[2022-01-03] MEDS ORDERED: FOLIC ACID 1 MG TABLET PO SCH (09:00)
[2022-01-03] MEDS ORDERED: ONDANSETRON 4 MG/2 ML VIAL IV PRN (09:14)
[2022-01-03] MEDS ORDERED: LACTATED RINGERS 1,000 ML IV SCH (09:30)
[2022-01-03] MEDS ORDERED: CALCIUM CARBONATE CHEW 500 MG TABLET PO PRN (10:30)
[2022-01-03] MEDS ORDERED: amLODIPine 5 MG TABLET PO SCH (11:00)
[2022-01-03] MEDS ORDERED: LEVOTHYROXINE 200 MCG TABLET PO SCH (11:00)
[2022-01-03] MEDS ORDERED: NORTRIPTYLINE 25 MG CAPSULE PO SCH (11:00)
[2022-01-03] MEDS ORDERED: propofoL 200 MG/20 ML VIAL IV ONE ×2 (12:09→12:15)
[2022-01-03] MEDS ORDERED: LIDOCAINE 2% 5 ML VIAL ONE (12:09)
[2022-01-03 12:53] VITALS: BP 139/84
[2022-01-03] MEDS ORDERED: SIMVASTATIN 20 MG TABLET PO SCH (21:00)
[2022-01-03] MEDS ORDERED: metFORMIN 500 MG TABLET PO SCH (21:00)
[2022-01-03] MEDS ORDERED: FERROUS SULFATE 325 MG TABLET PO SCH (21:00)
[2022-01-03] MEDS ORDERED: ARIPiprazole 5 MG TABLET PO SCH (21:00)
[2022-01-04] MEDS ORDERED: LEVOTHYROXINE 50 MCG TABLET PO SCH (09:00)
[2022-01-04] MEDS ORDERED: TRIAMCINOLONE 0.025% CREAM 15 GM TUBE TOP SCH (09:00)
== END 2022-01-03 15:15 | disposition home or self-care (01) ==
LOC: EDUNIT# → EDBD → N.3W 21:52 → N.ED 21:52 → N.3W 01-03 03:35
PROVIDERS: ADMIT Internal Medicine; ATTEND Internal Medicine